=== PATIENT | female | born 1990 | race Caucasian/White ===

== ENCOUNTER 2019-12-07 11:53 | Emergency (ER) | payer MEDICAID, SELFPAY ==
[2019-12-07 11:57] VITALS: BP 139/73; PULSE 97; RESP 18; TEMP 36; O2SAT 99
--- NOTE | 2019-12-07 12:17 | ED.GENADUL_ITS ---
Discharge Plan Disposition Patient Disposition: HOME Condition: Stable Discharge Details Chief Complaint: EarProblem Clinical Impression: Otitis externa of both ears, Otitis media of right ear Primary Care Provider: Kae Mcgrath ED Provider: Carrie Cartagena Home Meds and New Rx's Prescriptions: New Cipro HC 0.2-1 % drops,suspension 3 drp OT BID 7 Days Qty: 20 RF: 0 amoxicillin 500 mg tablet 500 mg PO TID 7 Days Qty: 21 RF: 0 methylprednisolone [Medrol (Kirill)] 4 mg tablets,dose pack See Rx Instructions .ROUTE .COMPLEX Qty: 21 RF: 0 Continued albuterol sulfate 90 mcg/actuation Hfa Aerosol Inhaler 2 puff INHALATION Q4H PRN PRNRF: 0 escitalopram oxalate 10 mg Tablet 10 mg PO DAILY RF: 0 omeprazole 20 mg Tablet,Delayed Release (Dr/Ec) 20 mg PO DAILY RF: 0 Vyvanse 60 mg Capsule 60 mg PO QAM RF: 0 cholecalciferol (vitamin D3) [Vitamin D3] 50 mcg (2,000 unit) Tablet 50 mcg PO DAILY RF: 0 ferrous gluconate 324 mg (37.5 mg iron) Tablet 324 mg PO DAILY RF: 0 Discharge Instructions Instructions: Otitis Externa (ED), Ear Infection (ED) Additional Instructions: Use the eardrops as directed. Take the steroid Dosepak as directed until finished. If you have no improvement or worsening of your pain over the next 2 days, start the oral antibiotics. Continue to alternate Tylenol and Motrin as needed and directed for pain. Call your primary care doctor's office today to schedule follow-up appointment for reevaluation within the next 1 to 2 weeks. Return to the emergency department if you develop any worsening or new concerning symptoms. Discharge Data Discharge Date/Time-TO BE ENTERED AT DEPARTURE: 12/07/19 12:45 Discharge Physician: Carrie Cartagena Medical Decision Making 29-year-old female presents with right-sided ear pain and popping sensation for the past 6 days and left-sided ear pain and popping sensation x2 days. She is afebrile and appears nontoxic. Bilateral ear exam consistent with otitis externa, worse on right side. There is also coexisting right-sided otitis media. Urine test negative. Will treat otitis externa with Cipro HC otic bilaterally as well as Medrol Dosepak. Patient instructed to continue to alternate Tylenol and Motrin. We will also give a prescription for amoxicillin to take if no relief with otic drops and p.o. steroids over the next 2 days. Advised to follow up with the primary care doctor for re-evaluation. Usual and customary return precautions given prior to discharge. HPI General Mode of arrival: ambulatory . Date/Time Provider Initiated Documentation: 12/07/19 11:54 . Limitations to Documentation: no limitations . Information obtained by: patient . HPI Narrative: Patient is a 29-year-old female presents to the ED with complaint of right-sided ear pain, hearing loss and popping for the past week, and left-sided mild ear pain with popping since yesterday. Denies any known fever. States she has a history of ear infections in the past and states this feels similar. She denies any sore throat or neck pain. She denies any recent swimming. Related Data Home Medications Medication Instructions Recorded Confirmed Vyvanse 60 mg PO QAM 12/07/19 12/07/19 albuterol sulfate 2 puff INHALATION Q4H PRN PRN 12/07/19 12/07/19 amoxicillin 500 mg PO TID 7 Days #21 tab 12/07/19 cholecalciferol (vitamin D3) 50 mcg PO DAILY 12/07/19 12/07/19 [Vitamin D3] ciprofloxacin-hydrocortisone 3 drp OT BID 7 Days #20 ml 12/07/19 [Cipro HC] escitalopram oxalate 10 mg PO DAILY 12/07/19 12/07/19 ferrous gluconate 324 mg PO DAILY 12/07/19 12/07/19 methylprednisolone [Medrol (Kirill)] See Rx Instructions .ROUTE 12/07/19 .COMPLEX #21 dose pk omeprazole 20 mg PO DAILY 12/07/19 12/07/19 Previous Rx's Medication Instructions Recorded amoxicillin 500 mg PO TID 7 Days #21 tab 12/07/19 ciprofloxacin-hydrocortisone 3 drp OT BID 7 Days #20 ml 12/07/19 [Cipro HC] methylprednisolone [Medrol (Kirill)] See Rx Instructions .ROUTE 12/07/19 .COMPLEX #21 dose pk Allergies Allergy/AdvReac Type Severity Reaction Status Date / Time No Known Allergies Allergy Unverified 12/07/19 12:01 General Stated Complaint: EarProblem JOSE RAMON: 4 Review of Systems All systems reviewed & are unremarkable except as noted in HPI and below Constitutional Constitutional: Reports as per HPI, Denies chills and Denies fever(s) Eyes Eyes: Denies blurry vision ENT Ears, Nose, Mouth, and Throat: Denies dizziness, Reports otalgia, Denies sore throat and Denies throat swelling Cardiovascular Cardiovascular: Denies chest pain and Denies dyspnea Respiratory Respiratory: Denies cough and Denies dyspnea Gastrointestinal Gastrointestinal: Denies abdominal pain, Denies diarrhea and Denies vomiting Genitourinary Genitourinary: Denies hematuria and Denies dysuria Musculoskeletal Musculoskeletal: Denies back pain and Denies numbness Integumentary/Breasts Skin/Breast: Denies lesions and Denies rash Neurologic Neurologic: Denies dizziness, Denies localized weakness and Denies numbness Allergic/Immunologic Allergic/Immunologic: Denies throat swelling [facility] Medical History (Updated 12/07/19 @ 12:28 by Carrie Cartagena DO) ADHD (Acute) Anxiety (Chronic) Surgical History (Updated 12/07/19 @ 12:27 by Carrie Cartagena DO) No significant past surgical history (Acute) Family History (Updated 12/04/19 @ 10:47 by Robert Phillips) Father Cancer Depression Diabetes Hyperlipidemia Hypertension Stroke Sister Cancer Depression Diabetes Heart disease Hyperlipidemia Hypertension Stroke Social History (Updated 12/04/19 @ 10:46 by Robert Phillips) Smoking/Tobacco Use Status: Never Second Hand Exposure: Yes Alcohol Intake: current Alcohol Intake frequency: holidays/special occasions only Alcohol type: wine and hard liquor Drug use: Never Substance use type: does not use Caregiver/Support person: No Household members: family Housing: apartment Communication Needs: None Do you need help understanding health information?: Rarely Pets and animals: Yes Pets and animals: dog(s) Do you think of yourself as: straight/heterosexual Current gender identity: male What is your relationship status?: never How often do you talk on the phone with friends or family?: three or more times per week How often do you get together with friends or relatives?: three or more times per week How often do you attend latter-day or sabianist services?: decline to answer Do you belong to any clubs or organized social groups?: decline to answer Panel score (0-1 are the most socially isolated patients): 1 What type of physical activity do you participate in: decline to answer Duration: decline to answer Frequency: decline to answer Tana/Yarsanism: Other Special tana needs: No Seatbelt use: always Helmet use: Yes Helmet use: always 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 Do you feel safe at home: Yes Do you feel safe in your relationship?: Yes Exam Const General: cooperative, healthy appearing and no acute distress HENMT Head: normal to inspection Ears: hearing grossly normal bilaterally, EAC abnormal erythema on the right, edema bilaterally (R worse than L) and EAC tenderness bilaterally, external ear abnormal pain with movement of external ear bilaterally (R worse than L) and TM abnormal wth effusion serous on the right, erythematous on the right and with fluid behind the TM on the right General nose exam: external nose normal Mouth: oral mucosae normal Throat: posterior oropharynx normal Eyes General: appearance normal, both eyes and all related structures Neck Neck: normal visual inspection, no lymphadenopathy, no meningeal signs, trachea midline, supple and No submandibular swelling Resp Effort & Inspection: normal respiratory effort and able to speak in complete sentences Cardio Rate: regular rate Skin General skin exam: no rashes or lesions noted Neuro General: patient alert, patient awake and patient oriented x3 Motor: muscle tone normal throughout Extrem General: normal to inspection and full ROM Psych Appearance: grossly normal Affect: normal affect Course Vital Signs Vital signs: Vital Signs Temperature 96.8 F L 12/07/19 11:57 Pulse 97 H 12/07/19 11:57 Respiratory Rate 18 12/07/19 11:57 Blood Pressure 139/73 12/07/19 11:57 Pulse Oximetry 99 12/07/19 11:57 Temperature 96.8 F L 12/07/19 11:57 Temperature Source Temporal Artery Scan 12/07/19 11:57 Pulse 97 H 12/07/19 11:57 Respiratory Rate 18 12/07/19 11:57 Respiratory Effort Non-Labored 12/07/19 12:06 Blood Pressure 139/73 12/07/19 11:57 Blood Pressure Position Sitting 12/07/19 11:57 Pulse Oximetry 99 12/07/19 11:57 Oxygen Delivery Method Room Air 12/07/19 11:57 Oxygen Flow Rate 0 12/07/19 11:57 Pain Level 10 12/07/19 12:06 Comment 12/07/19 11:57
== END 2019-12-07 12:45 | disposition home or self-care (01) ==
LOC: ER 12:50
PROVIDERS: Emergency Provider Physician Assistant
DX: H60.503 Unspecified acute noninfective otitis externa, bilateral (principal); H66.91 Otitis media, unspecified, right ear
CPT/HCPCS: 81025; 99283